=== PATIENT | male | born 1980 | race Caucasian/White ===

== ENCOUNTER 2022-08-24 19:30 | Emergency (ER) | payer OTHER, SELFPAY ==
[2022-08-24 19:52] VITALS: BP 136/99; PULSE 116; RESP 20; TEMP 37.1; O2SAT 98
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
== END 2022-08-24 22:59 | disposition home or self-care (01) ==
PROVIDERS: Emergency Provider Physician Assistant; PCP Family Medicine
DX: Z04.1 Encounter for examination and observation following transport accident (principal); V43.52XA Car driver injured in collision with other type car in traffic accident, initial encounter
CPT/HCPCS: 99282